=== PATIENT | female | born 1980 | race Two or more races ===

== ENCOUNTER → 2024-08-22 | Outpatient (CLI) | payer MEDICAID, SELFPAY ==
--- NOTE | 2024-08-22 11:45 | XR_ITS ---
Examination: Screening digital mammography, bilateral Computer aided detection 3-D breast Tomosynthesis, bilateral Date and time of exam: August 22, 2024 1138 hours No priors Indication: Screening Technique: Nonmagnified MLO, CC views of the breasts to been obtained, reconstructed from 3-D Tomosynthesis images. R2 computer aided detection program utilized for evaluation of suspicious masses and/or abnormal calcifications. 3-D Tomosynthesis images obtained. Findings: Scattered areas of fibroglandular density Breast biopsy marker upper outer right breast Probable focal asymmetric glandular tissue upper outer quadrant right breast Impression: BI-RADS Category 0: Incomplete: Need additional imaging evaluation Recommend follow-up spot tomographic views upper outer quadrant right breast and right breast sonography to confirm glandular tissue upper outer quadrant right breast.
== END | disposition home or self-care (01) ==
LOC: CDIM 11:32
PROVIDERS: Visit Provider Physician Assistant Medical
DX: Z12.31 Encounter for screening mammogram for malignant neoplasm of breast (principal); R92.8 Other abnormal and inconclusive findings on diagnostic imaging of breast
CPT/HCPCS: 77063; 77067

== ENCOUNTER → 2024-11-17 | Outpatient (CLI) | payer MEDICAID, SELFPAY ==
--- NOTE | 2024-11-17 08:45 | XR_ITS ---
Examination: Breast ultrasound, unilateral, right complete Date and time of exam: November 17, 2024 at 0856 hours INDICATIONS: Asymmetric density upper outer quadrant right breast on mammogram August 22, 2024 Technique: Real-time traore scale ultrasonographic imaging performed right breast including all 4 quadrants as well as nipple retroareolar and axillary region. Findings: 10:00 circumscribed oval mass with calcification 5 x 3 x 5 mm IMPRESSION: BI-RADS Category 3: Probably benign findings One additional 6 month right breast sonogram follow-up needed to document stability of 10:00 nodule described above
--- NOTE | 2024-11-17 09:15 | XR_ITS ---
Examination: Diagnostic digital mammography, unilateral, right Computer aided detection 3-D breast Tomosynthesis, unilateral Date and time of exam: November 17, 2024 0911 hours INDICATIONS: Mammogram August 22, 2024 focal asymmetry density upper outer right breast Technique: Nonmagnified MLO, CC views of the right breast have been obtained, reconstructed from 3-D Tomosynthesis images. R2 computer aided detection program utilized for evaluation of suspicious masses and/or abnormal calcifications. 3-D Tomosynthesis images obtained. Findings: Scattered areas of fibroglandular density Breast biopsy marker upper right breast 18 mm round mass outer right breast on the spot compression cc view Impression: BI-RADS category 0: Incomplete: Need additional imaging evaluation 18 mm round mass outer right breast on spot compression views partially indistinct margins, this patient should return for repeat dedicated right breast sonography with the radiologist in attendance
== END | disposition home or self-care (01) ==
PROVIDERS: PCP Physician Assistant Medical; Referring Provider Physician Assistant Medical; Visit Provider Physician Assistant Medical
DX: N63.11 Unspecified lump in the right breast, upper outer quadrant (principal)
CPT/HCPCS: 76641; 77061; 77065; G0279

== ENCOUNTER → 2025-04-17 | Outpatient (CLI) | payer MEDICAID, SELFPAY ==
--- NOTE | 2025-04-17 13:00 | XR_ITS ---
Examination: Breast ultrasound, unilateral, right Date and time of exam: April 17, 2025 1402 hours INDICATIONS: Mammogram November 17, 2024 18 mm round mass outer right breast on the spot compression CC view Technique: Real-time traore scale ultrasonographic imaging performed right breast including all 4 quadrants as well as nipple retroareolar and axillary region. Findings: No cystic or solid mass IMPRESSION: BI-RADS Category 1: Negative study
--- NOTE | 2025-04-17 13:30 | XR_ITS ---
Examination: Diagnostic digital mammography, unilateral, right Computer aided detection 3-D breast Tomosynthesis, unilateral Date and time of exam: April 17, 2025 1341 hours INDICATIONS: Mammogram August 22, 2024 focal asymmetry upper outer right breast Technique: Nonmagnified MLO, CC views of the right breast have been obtained, reconstructed from 3-D Tomosynthesis images. R2 computer aided detection program utilized for evaluation of suspicious masses and/or abnormal calcifications. 3-D Tomosynthesis images obtained. Findings: Scattered areas of fibroglandular density Suspicious for microcalcifications in the focal area of asymmetry upper outer right breast Impression: BI-RADS category 0: Incomplete: Need additional imaging evaluation Recommend follow-up magnification spot compression views of the possible calcifications in the upper outer right breast
== END | disposition home or self-care (01) ==
LOC: SDIM 13:04
PROVIDERS: Referring Provider Physician Assistant Medical; Visit Provider Physician Assistant Medical
DX: N63.0 Unspecified lump in unspecified breast (principal)
CPT/HCPCS: 76641; 77061; 77065; G0279